=== PATIENT | female | born 1980 | race Caucasian/White ===

== ENCOUNTER 2020-12-09 14:05 | Inpatient (IN) | payer BC ==
[~2020-12-09 14:05] MED LIST: PROMETHAZINE HCL 25 MG/1 ML VIAL IVPB ONE
[2020-12-09 15:50] LABS: BASO % 0.5 % (0-2.0); EOS % 0.7 % (0-4.5); HEMATOCRIT 38.2 % (32.4-45.2); HEMOGLOBIN 13.2 GM/dL (10.7-15.3); LYMPH % 25.7 % (8-40); MCHC 34.6 g/dl (32.0-36.0); MEAN CELL VOLUME 86.8 fl (80-96); MEAN PLT VOLUME 8.2 fl (7.5-11.1); MONO % 9.1 % (3.8-10.2); PLATELET COUNT 158 K/MM3 (134-434); WHITE BLOOD COUNT 7.7 K/mm3 (4.0-10.0)
[2020-12-09 16:02] LABS: INR 0.96 (0.83-1.09); PROTHROMBIN TIME (PATIENT) 11.8 SEC (9.7-13.0)
[2020-12-09 16:06] LABS: ACTIVATED PTT 27.7 SECONDS (25.2-36.5)
[2020-12-09 16:15] LABS: POTASSIUM 3.9 mmol/L (3.5-5.1)
[2020-12-09 16:16] LABS: CALCIUM 8.8 mg/dL (8.5-10.1)
[2020-12-09 16:17] LABS: BLOOD UREA NITROGEN 7.4 mg/dL (7-18)
[2020-12-09 16:20] LABS: CREATININE 0.5 mg/dL (0.55-1.3)
[2020-12-09 16:43] LABS: SYPHILIS W/ RPR CONF NON-REACTIVE (NONREACTIVE)
[2020-12-09 17:06] VITALS: BMI 34.9
[2020-12-09 17:12] LABS: HIV INTERPRETATION NEGATIVE (NEGATIVE)
[2020-12-09] MEDS ORDERED: BUTORPHANOL TARTRATE 1 MG/ML VIAL IVPB PRN (17:26)
[2020-12-09] MEDS ORDERED: DINOPROSTONE 10 MG VAGINAL SUPPOSITORY VG ONE (17:28)
[2020-12-09] MEDS: ELECTROLYTE-148 SOLN 1,000 ML IV SCH ×2 (19:40→22:00)
[2020-12-09] MEDS ORDERED: BUTORPHANOL TARTRATE 2 MG/ML VIAL ONE (20:34)
[2020-12-09] MEDS ORDERED: PROMETHAZINE HCL 25 MG/1 ML VIAL IVPB ONE (21:24)
[2020-12-09] MEDS ORDERED: PROMETHAZINE HCL 25 MG/1 ML VIAL ONE (21:25)
[2020-12-10] MEDS ORDERED: FENTANYL/BUPIVACAINE/NS/PF - PCEA - 50 ML DISP.SYRIN EP ONE ×3 (01:29→09:01)
[2020-12-10] MEDS ORDERED: PCA PUMP NR ONE (01:29)
[2020-12-10] MEDS ORDERED: BENZOCAINE 20% 57 GM BOTTLE TP PRN (01:42)
[2020-12-10] MEDS ORDERED: METHYLERGONOVINE MALEATE 0.2 MG/1 ML AMP IM PRN (01:42)
[2020-12-10] MEDS ORDERED: BENZOCAINE 28 GM HEMORRHOIDAL OINTMENT PR PRN (01:42)
[2020-12-10] MEDS ORDERED: BISACODYL 10 MG SUPP.RECT PR PRN (01:42)
[2020-12-10] MEDS ORDERED: WITCH HAZEL 50% (TUCKS) 40 PAD/JAR PAD TP PRN (01:42)
[2020-12-10] MEDS ORDERED: OXYTOCIN 20 UNITS in 0.9% NS 20 UNIT/1,000 ML INFUS.BAG IV SCH (01:45)
[2020-12-10] MEDS ORDERED: OXYTOCIN 30 UNITS in 0.9% NS 30 UNIT/500 ML INFUS.BAG IVPB SCH (02:00)
[2020-12-10] MEDS ORDERED: NALOXONE HCL 0.4 MG/ML VIAL IVPUSH PRN (02:02)
[2020-12-10] MEDS ORDERED: FENTANYL/BUPIVACAINE/NS/PF - PCEA - 50 ML DISP.SYRIN EP SCH (02:15)
[2020-12-10] MEDS ORDERED: OXYTOCIN 30 UNITS in 0.9% NS 30 UNIT/500 ML INFUS.BAG IVPB ONE (02:51)
[2020-12-10] MEDS: ELECTROLYTE-148 SOLN 1,000 ML IV SCH ×2 (03:00→22:59)
[2020-12-10] MEDS ORDERED: LIDOCAINE HCL 1% PRESERVATIVE FREE - 30ML VIAL ONE (08:34)
[2020-12-10] MEDS ORDERED: OXYTOCIN 20 UNITS in 0.9% NS 20 UNIT/1,000 ML INFUS.BAG IV ONE (08:35)
[2020-12-10] MEDS ORDERED: IBUPROFEN 600 MG TABLET (FP) PO ONE (13:44)
[2020-12-10] MEDS ORDERED: ACETAMINOPHEN 325 MG TABLET (FP) ONE (13:44)
[2020-12-10 13:50] LABS: CORD BASE EXCESS -6.2 mmol/L (0-2); CORD HCO3 20.2 mmHg (20-29); CORD PCO2 43.2 mmHg (30-78); CORD pH 7.288 (7.14-7.44)
[2020-12-10] MEDS: ACETAMINOPHEN 325 MG TABLET (FP) PO PRN ×2 (14:05→18:09)
[2020-12-10] MEDS: IBUPROFEN 600 MG TABLET (FP) PO PRN ×2 (14:05→18:08)
[2020-12-11] MEDS: IBUPROFEN 600 MG TABLET (FP) PO PRN (00:20)
[2020-12-11] MEDS: ACETAMINOPHEN 325 MG TABLET (FP) PO PRN (00:20)
[2020-12-11 10:14] LABS: BASO % 0.5 % (0-2.0); EOS % 0.6 % (0-4.5); HEMATOCRIT 36.5 % (32.4-45.2); HEMOGLOBIN 12.4 GM/dL (10.7-15.3); LYMPH % 15.5 % (8-40); MCHC 34.1 g/dl (32.0-36.0); MEAN CELL VOLUME 88.2 fl (80-96); MEAN PLT VOLUME 8.4 fl (7.5-11.1); MONO % 9.4 % (3.8-10.2); PLATELET COUNT 141 K/MM3 (134-434); RBC 4.14 M/mm3 (3.60-5.2); RDW 14.3 % (11.6-15.6); WHITE BLOOD COUNT 15.5 K/mm3 (4.0-10.0)
[2020-12-11 21:20] VITALS: TEMP 97.4
[2020-12-11] MEDS ORDERED: diphenhydrAMINE HCL 25 MG CAPSULE (FP) PO PRN (21:23)
[2020-12-12] MEDS: IBUPROFEN 600 MG TABLET (FP) PO PRN (00:15)
[2020-12-12] MEDS: ACETAMINOPHEN 325 MG TABLET (FP) PO PRN (00:16)
[2020-12-12] MEDS ORDERED: DEXTROSE 5%-LACTATED RINGERS 1,000 ML IV SCH (01:45)
[2020-12-12 17:24] VITALS: BP 110/69; PULSE 73
== END 2020-12-12 14:45 | disposition home or self-care (01) | DRG 807 ==
LOC: JLDR 14:05 → J3W 12-10 15:35
PROVIDERS: ADMIT Obstetrics & Gynecology; ATTEND Obstetrics & Gynecology
PROC: 3E0P7VZ Introduction of Hormone into Female Reproductive, Via Natural or Artificial Opening (ICD-10-PCS; 2020-12-09)
PROC: 10E0XZZ Delivery of Products of Conception, External Approach (ICD-10-PCS; principal; 2020-12-10)
DX: O48.0 Post-term pregnancy (principal); Z37.0 Single live birth; O70.0 First degree perineal laceration during delivery; Z3A.40 40 weeks gestation of pregnancy
CPT/HCPCS: 36415; 36600; 59409; 80048; 82803; 85025; 85610; 85730; 86780; 86850; 86900; 86901; 87389; C9803; U0003